=== PATIENT | female | born 1995 | race Hispanic/Latino ===

== ENCOUNTER → 2024-04-20 | Outpatient (CLI) | payer OTHER ==
[~2024-04-20] VITALS: Ht 12.7 cm; Wt 153.4 kg
[~2024-04-20] MED LIST: ETAN50SY SQ; METF-444 PO
--- NOTE | 2024-04-20 13:17 | NUR ---
BARIATRIC INITIAL ASSESSMENT VISIT 1 OF 6 Wt: 338 lbs DOS: 04/20/24 Pt seeking bariatric procedure to aid in wt loss and improve medical health conditions. Pt reported she heard of procedure from friends and family, takes metformin unknown dose, has struggled with wt all her life, has tried to lose wt in the past with a personal vehicle advisor+ FAD diets, both sides of the family struggle with wt, checks BG 3-4 times per day, her father 1 year ago, gained 100 lb since his passing, has two children that are picky eaters, lives with her mom, goes grocery shopping and cooks, recent dx w/ T2DM, last A1c of 6.9 1 month ago, has not received T2DM education before, consumes ~2 meals + no snacks, drinks ~2 sodas per day, sweets N/A, fast food 3-4 x per week, takes 10 min to eat a meal, dx w/ PTSD, sees therapist 1-2 x per month, has mentioned stress eating to therapist, struggles with stress eating, does not work, does not travel, no hx of infertility, no plan to become , has means to purchase healthy food w/ no issue, sleeps 4-10 hrs per day, is able to exercise limited time per arthritis, support system being her mom, goal wt of 180 [address] conducted 24 hr recall: Breakfast: skipped Lunch: barbacoa + four tortilla + regular soda Dinner: ham + gravy + mashed potatoes + sweet tea Snack(s): N/A RD reviewed portion sizes with pt, reviewed healthy plate, informed Pt of importance of protein intake, demonstrated DM chart, reviewed carbohydrate sources, encouraged Pt to decrease soda consumption, encouraged Pt to incorporate exercise, Pt verbalized understanding. Pt completed wt management program diet readiness questionnaire. Results are as follows: Section 1: Goals and Attitudes. Score of 22. You may be close to being ready to begin a program but should think about ways to boost your preparedness before you begin. Sections 2: Hunger and Eating cues. Score 8. You may have a moderate tendency to eat just because food is available. Dieting may be easier for you if you try to resist external cues and eat only when you are physically hungry. Section 3: Control over Eating. Score 5. You recover rapidly from mistakes. However, if you frequently alternate between eating out of control and dieting strictly, you may have a serious eating problem and should get professional help. Section 4: Madeline Eating and Purging: Score 0. It appears that binge eating, and purging is not a problem for you. Section 5: Emotional Eating: Score 8. You do not appear to let your emotions affect your eating. Section 6: Exercise Patterns and Attitudes: Score 13. You need to feel more positive about exercise so that you can do it more often. Think of ways to be more active that are fun and fit your lifestyle. Goals Established: -MVI QD -decrease carbonation -increase protein in meals Pt in agreement with goals and is aware she will need to cut carbonated beverages, sweets and caffeine prior to surgery. Recommended for Pt to complete visits with Dietitian to prepare for bariatric procedure. Thank you for this visit. Addendum: 04/20/24 at [address] Amended: Links added.
== END | disposition home or self-care (01) ==
LOC: DTH 08:50
PROVIDERS: ATTEND Surgery
DX: E11.9 Type 2 diabetes mellitus without complications (principal); I10 Essential (primary) hypertension; K21.9 Gastro-esophageal reflux disease without esophagitis; G47.33 Obstructive sleep apnea (adult) (pediatric); M19.91 Primary osteoarthritis, unspecified site; E78.00 Pure hypercholesterolemia, unspecified; E66.01 Morbid (severe) obesity due to excess calories; Z68.45 Body mass index [BMI] 70 or greater, adult
CPT/HCPCS: 97802

== ENCOUNTER → 2024-04-20 | Outpatient (CLI) | payer MEDICAID ==
--- NOTE | 2024-04-20 09:30 | EKG ---
[facility] Test Date: 2024-04-20 Test Time: 10:21:54 Pat Name: ALLISON MAHONEY Department: LAB Room: Gender: F Patient Svcs Mgr: [id number] : 1995 Requested By: PASCALE HARRINGTON Order Number: [id number] Reading MD: Radha Narayan Measurements Intervals [place] Rate: 89 P: 43 [place]: 138 QRS: 42 QRSD: 90 T: 51 QT: 388 QTc: 472 Interpretive Statements Sinus rhythm Low voltage, precordial leads No previous ECG available for comparison Electronically Signed On 04-20-2024 17:10:13 PRESERVATIVE FILLER MACHINE OPERATOR by Radha Narayan Please click the below link to view image of tracing.
[2024-04-20 09:57] LABS: BASOPHILS # (AUTO) 0.03 K/uL (0.00-0.20); BASOPHILS % (AUTO) 0.3 % (0.0-5.0); EOSINOPHILS # (AUTO) 0.05 K/uL (0.00-0.70); EOSINOPHILS % (AUTO) 0.6 % (0.0-8.0); HEMATOCRIT 39.6 % (36-48); IMMATURE GRANULOCYTE ABSOLUTE 0.02 K/uL (0-1); LYMPHOCYTES # (AUTO) 2.5 K/uL (1.0-4.8); LYMPHOCYTES % (AUTO) 29.2 % (21.0-51.0); MEAN CORPUSCULAR HEMOGLOBIN 24.4 pg (27.0-33.0); MEAN CORPUSCULAR HGB CONC 30.8 g/dL (32.0-36.0); MEAN CORPUSCULAR VOLUME 79.4 fL (79-99); MONOCYTES # (AUTO) 0.2 K/uL (0.1-1.0); MONOCYTES % (AUTO) 2.5 % (3.0-13.0); NEUTROPHILS # (AUTO) 5.8 K/uL (1.8-7.7); NEUTROPHILS % (AUTO) 67.2 % (40.0-77.0); PLATELET COUNT (AUTO) 252 K/uL (130-400); RED BLOOD CELL COUNT(AUTO) 4.99 MIL/uL (4.00-5.50); RED CELL DISTRIBUTION WIDTH 15.1 % (11.0-15.5); WHITE BLOOD COUNT (AUTO) 8.6 K/uL (4.8-10.8)
[2024-04-20 10:39] LABS: ALBUMIN 3.3 g/dL (3.5-5.0); BILIRUBIN,TOTAL 0.5 mg/dL (0.2-1.0); CREATININE 0.7 mg/dL (0.5-1.0); MAGNESIUM 1.9 mg/dL (1.80-2.40); POTASSIUM 3.8 mmol/L (3.5-5.1); T4 (THYROXINE) 9.5 ug/dL (4.7-13.3); THYROID STIMULATING HORMONE 1.95 uIU/mL (0.36-3.74); TOTAL PROTEIN, SERUM 7.6 g/dL (6.0-8.3)
--- NOTE | 2024-04-20 12:18 | HMCIMG ---
CHEST 2VWS REASON: TYPE II DM, HTN, GERD, Pure hypercholesterolemia, PRE-OP COMPARISON: None FINDINGS: Two views of the chest were obtained. Lungs are clear. Heart size is normal. There is no pulmonary vascular congestion. Mediastinum and bony thorax appear unremarkable. IMPRESSION: Normal two view chest x-ray.
== END | disposition home or self-care (01) ==
LOC: LAB 08:36
PROVIDERS: ATTEND Surgery
DX: Z01.818 Encounter for other preprocedural examination (principal); E11.9 Type 2 diabetes mellitus without complications; I10 Essential (primary) hypertension; K21.9 Gastro-esophageal reflux disease without esophagitis; G47.33 Obstructive sleep apnea (adult) (pediatric); M19.91 Primary osteoarthritis, unspecified site; E78.00 Pure hypercholesterolemia, unspecified; E66.01 Morbid (severe) obesity due to excess calories; Z68.43 Body mass index [BMI] 50.0-59.9, adult
CPT/HCPCS: 36415; 71046; 80053; 80061; 82306; 82607; 82728; 82746; 82947; 83036; 83540; 83550; 83735; 84207; 84425; 84436; 84443; 84446; 84481; 84590; 84630; 85025; 93005

== ENCOUNTER → 2024-05-17 | Outpatient (CLI) | payer OTHER ==
--- NOTE | 2024-05-17 10:02 | NUR ---
BARIATRIC FOLLOW UP NOTE VISIT 2 OF 6 Wt: 331.6 LBS DOS: 05/17/24 Upon follow up visit, pt presents with a 7 lb wt loss. Pt reported she felt good towards wt loss, has been eating breakfast now, has been mindful of portion sizes, has MVI qd that her mom bought for her, has decreased carbonation, has been sipping on water, has been walking everyday for 30 mins, has been trying protein shakes, likes [employer], is going to see her PCP later this week, her A1C used to be 9. RD conducted 24 hr food recall. Breakfast: eggs + beans +water Lunch: Macaroni salad +water Dinner:rice + 1 enchilada + water No snacks RD reviewed simple CHO and complex CHO intake, encouraged pt to decrease soft drink (even sugar free) consumption secondary to carbonation and caffeine, reviewed labs and encouraged Pt to request them in the front, pt verbalized understanding. RD and pt established goals for next month: -1 protein supplement per day -cut off carbonation -continue walking daily for 30 mins Thank you for this visit. Addendum: 05/17/24 at [address] Amended: Links added.
== END | disposition home or self-care (01) ==
LOC: DTH 09:10
PROVIDERS: ATTEND Surgery
DX: I10 Essential (primary) hypertension (principal); G47.33 Obstructive sleep apnea (adult) (pediatric); E66.01 Morbid (severe) obesity due to excess calories; E11.9 Type 2 diabetes mellitus without complications; M19.91 Primary osteoarthritis, unspecified site; E78.01 Familial hypercholesterolemia; K21.9 Gastro-esophageal reflux disease without esophagitis
CPT/HCPCS: 97803

== ENCOUNTER → 2024-06-07 | Outpatient (CLI) | payer OTHER ==
--- NOTE | 2024-06-07 09:30 | NUR ---
BARIATRIC FOLLOW UP NOTE VISIT 3 OF 6 Wt: 332.6 LBS DOS: 06/07/24 Upon follow up visit, pt presents with a 1 lb wt gain. Pt reported she does not have a great appetite, continues with therapy, got a bike recently, decreased carbonation, continues water training, continues to walk QD for 30 mins, weighed 328 lbs yesterday, consumes protein shakes almost daily, no MVI QD, has been getting clearances, is on a vit. D prescription. RD conducted 24 hr food recall. Breakfast: skipped Lunch: chicken + mashed potato + regular soda Dinner: rice + steak RD reviewed meal prepping, discussed ways to help with PO intake while having low appetite, discussed different recipes, discussed different ways to meal prep, encouraged pt to decrease soft drink (even sugar free) consumption secondary to carbonation and caffeine, pt verbalized understanding. RD and pt established goals for next month: -MVI QD -walking qd 35 mins -no skipping meals Thank you for this visit Addendum: 06/07/24 at [address] Amended: Links added.
== END | disposition home or self-care (01) ==
LOC: DTH 08:55
PROVIDERS: ATTEND Surgery
DX: G47.33 Obstructive sleep apnea (adult) (pediatric) (principal); E66.01 Morbid (severe) obesity due to excess calories; E11.9 Type 2 diabetes mellitus without complications; I10 Essential (primary) hypertension; M19.91 Primary osteoarthritis, unspecified site; K21.9 Gastro-esophageal reflux disease without esophagitis; Z68.43 Body mass index [BMI] 50.0-59.9, adult
CPT/HCPCS: 97803

== ENCOUNTER → 2024-07-07 | Outpatient (CLI) | payer OTHER ==
--- NOTE | 2024-07-07 09:34 | NUR ---
BARIATRIC FOLLOW UP NOTE VISIT 4 OF 6 Wt: 330 LBS DOS: 07/07/24 Upon follow up visit, pt presents with a 2 lb wt loss. Pt reported she has financial issues at the moment, continues with vit. D prescription, no MVI QD, will look into clear protein powder, continues biking QD 30-1 hr, sees therapist every 3 months, water training, cut off carbonation. RD conducted 24 hr food recall. Breakfast: skipped Lunch: chicken tenders + water Dinner: pasta +water RD reviewed nutrition label reading, reviewed clear protein products, reviewed importance of protein intake, reviewed importance of calcium and vit. D, encouraged pt to decrease soft drink (even sugar free) consumption secondary to carbonation and caffeine, pt verbalized understanding. RD and pt established goals for next month: -MVI QD -protein shake daily -continue biking QD for 30-1 hr Thank you for this visit Addendum: 07/07/24 at [address] Amended: Links added.
== END | disposition home or self-care (01) ==
LOC: DTH 09:04
PROVIDERS: ATTEND Surgery
DX: E66.01 Morbid (severe) obesity due to excess calories (principal); I10 Essential (primary) hypertension; G47.33 Obstructive sleep apnea (adult) (pediatric); E11.9 Type 2 diabetes mellitus without complications; K21.9 Gastro-esophageal reflux disease without esophagitis; M19.91 Primary osteoarthritis, unspecified site; E78.00 Pure hypercholesterolemia, unspecified; Z71.3 Dietary counseling and surveillance
CPT/HCPCS: 97803

== ENCOUNTER → 2024-08-09 | Outpatient (CLI) | payer OTHER ==
--- NOTE | 2024-08-09 10:39 | NUR ---
BARIATRIC FOLLOW UP NOTE VISIT 5 OF 6 Wt: 318 LBS DOS: 08/09/24 Upon follow up visit, pt presents with a 12 lb wt loss. Pt reported poor appetite, saw the wt loss coming, on vit. D prescription, cut off carbonation, is not able to afford protein shakes, MVI QD, on fiber pills MD recommended, goes to the restroom daily. RD conducted 24 hr food recall. Breakfast: scrambled eggs + water Lunch: skipped Dinner: chicken bites + [place] fries + water RD reviewed fiber requirements, reviewed high fiber foods, informed Pt on probiotics and prebiotics, encouraged Pt to not skip meals, reviewed importance of protein shakes post op, encouraged pt to decrease soft drink (even sugar free) consumption secondary to carbonation and caffeine, pt verbalized understanding. poor compliance suspected per Pt's financial situation, not able to purchase protein shakes. RD and pt established goals for next month: -increase color in meals -no skipping meals -walking 10 mins 3x per week Thank you for this visit Addendum: 08/09/24 at [address] Amended: Links added.
== END | disposition home or self-care (01) ==
LOC: DTH 10:04
PROVIDERS: ATTEND Surgery
DX: E66.01 Morbid (severe) obesity due to excess calories (principal); I10 Essential (primary) hypertension; E11.9 Type 2 diabetes mellitus without complications; G47.33 Obstructive sleep apnea (adult) (pediatric); M19.91 Primary osteoarthritis, unspecified site; E78.00 Pure hypercholesterolemia, unspecified; K21.9 Gastro-esophageal reflux disease without esophagitis; Z71.3 Dietary counseling and surveillance; Z68.43 Body mass index [BMI] 50.0-59.9, adult
CPT/HCPCS: 97803

== ENCOUNTER → 2024-09-06 | Outpatient (CLI) | payer OTHER ==
--- NOTE | 2024-09-06 09:44 | NUR ---
FOLLOW PRE-OP/POST-OP DIETARY RECOMMENDATIONS BARIATRIC PRE-OP VISIT VISIT 6 OF 6 Wt:320.6 lbs DOS:09/06/24 Upon follow up visit, pt presented with a 2 lb wt gain. Pt reported she did not see the 2 lb wt gain coming, on MVI QD, on vit. D prescription, her tooth hurts, has protein shakes, bikes 30 mins 4x per week. RD reviewed educational material for pre-op and post-op diet recommendations with detailed phases of diet post-op. Pt was informed of importance of lifelong vitamin/mineral supplementation, choosing protein first during meals (pt was educated on higher protein requirements), choosing low calorie, sugar free, carbonated free and caffeine beverages. RD also informed pt on lifelong commitment to exercise and dietary recommendations for optimal success post surgery. RD encouraged getting blood work every 3 to 6 months, including B-vitamins, Pt verbalized understanding. RD informed Pt on moving around after procedure to prevent DVT, Pt verbalized understanding. Pt was encouraged to contact RD as questions arise and to attend support groups. RD provided protein supplement recommendations along with Bariatric Vitamin recommendations via graphics to patient. Pt with several questions, all of which were answered. Fair compliance suspected. Pt will benefit from outpatient bariatric dietitian follow up post procedure. Pt to follow up with PCP for labs. Thank you for this visit. Addendum: 09/06/24 at [address] Amended: Links added.
== END | disposition home or self-care (01) ==
LOC: DTH 09:09
PROVIDERS: ATTEND Surgery
DX: E66.01 Morbid (severe) obesity due to excess calories (principal); I10 Essential (primary) hypertension; E11.9 Type 2 diabetes mellitus without complications; G47.33 Obstructive sleep apnea (adult) (pediatric); M19.91 Primary osteoarthritis, unspecified site; E78.00 Pure hypercholesterolemia, unspecified; K21.9 Gastro-esophageal reflux disease without esophagitis; Z71.3 Dietary counseling and surveillance; Z68.43 Body mass index [BMI] 50.0-59.9, adult
CPT/HCPCS: 97803